=== PATIENT | male | born 1965 | race Caucasian/White ===

== ENCOUNTER 2016-08-18 22:39 | Emergency (ER) | payer MEDICAID ==
[~2016-08-18] VITALS: Ht 188 cm; Wt 115.7 kg
[2016-08-18] MEDS ORDERED: HYDR-3240 PO (22:45)
[2016-08-19] MEDS ORDERED: LIDOCAINE 1%, 20ML ONE (00:24)
[2016-08-19] MEDS ORDERED: LIDOCAINE 1%, 20ML SQ ONE (00:30)
[2016-08-19] MEDS ORDERED: SULFAMETH./TRIMETHOPRIM DS 800MG/160MG TABLET ONE (01:07)
[2016-08-19] MEDS ORDERED: SULFAMETH./TRIMETHOPRIM DS 800MG/160MG TABLET PO ONE (01:30)
[2016-08-19 01:50] VITALS: BP 137/78
== END 2016-08-19 01:52 | disposition home or self-care (01) ==
LOC: ED 08-19 01:46
DX: N49.2 Inflammatory disorders of scrotum (principal)
CPT/HCPCS: 10061